=== PATIENT | female | born 1960 | race Caucasian/White ===

== ENCOUNTER → 2017-02-25 | Outpatient (CLI) | payer BC | END | disposition home or self-care (01) | LOC: MMGSC 10:05 | PROVIDERS: ATTEND Family Medicine | DX: Z00.00 Encounter for general adult medical examination without abnormal findings (principal) | CPT/HCPCS: 36415; 80061; 84439; 84443 ==

== ENCOUNTER → 2017-07-15 | Outpatient (CLI) | payer BC ==
[2017-07-15 18:48] LABS: Basophils # (A) 0.1 k/uL (0-0.2); Basophils % (A) 1 %; Eosinophils # (A) 0.1 k/uL (0-0.7); Eosinophils % (A) 2 %; HGB 13.7 gm/dL (11.4-16.0); Lymphocytes # (A) 2.6 k/uL (1.0-4.8); Lymphocytes % (A) 40 %; MCH 29.9 pg (25.0-35.0); MCHC 31.8 g/dL (31.0-37.0); MCV 94.2 fL (80.0-100.0); Mean Platelet Volume 7.9; Monocytes # (A) 0.5 k/uL (0-1.0); Monocytes % (A) 7 %; Neutrophils # (A) 3.2 k/uL (1.3-7.7); Neutrophils % (A) 48 %; Platelet Count 306 k/uL (150-450); RBC 4.57 m/uL (3.80-5.40); RDW 13.2 % (11.5-15.5); WBC 6.6 k/uL (3.8-10.6)
[2017-07-15 19:01] LABS: ALT 19 U/L (9-52); AST 22 U/L (14-36); Albumin 4.5 g/dL (3.5-5.0); Alkaline Phosphatase 71 U/L (38-126); Anion Gap 15 mmol/L; Blood Urea Nitrogen 19 mg/dL (7-17); Calcium 10.1 mg/dL (8.4-10.2); Carbon Dioxide 26 mmol/L (22-30); Chloride 100 mmol/L (98-107); Cholesterol 248 mg/dL (<200); Glucose 91 mg/dL (74-99); HDL Cholesterol 69 mg/dL (40-60); LDL Cholesterol,Calculated 157 mg/dL (0-99); Potassium 4.3 mmol/L (3.5-5.1); Sodium 141 mmol/L (137-145); Total Bilirubin 0.5 mg/dL (0.2-1.3); Total Protein 6.9 g/dL (6.3-8.2); Triglycerides 110 mg/dL (<150)
== END ==
LOC: MMGSC 09:24
PROVIDERS: ATTEND Family Medicine
DX: Z01.812 Encounter for preprocedural laboratory examination (principal); E78.5 Hyperlipidemia, unspecified
CPT/HCPCS: 36415; 80053; 80061; 85025

== ENCOUNTER → 2022-07-11 | Outpatient (CLI) | payer BC ==
--- NOTE | 2022-07-11 14:12 | P.GSHP ---
History of Present Illness H&P Date: 07/11/22 Chief Complaint: Nipple discharge Nichelle is a 62 year old white female seen in consultation for Dr. Duffy regarding left nipple discharge. She had a bilateral mammogram on 01-29-22 which was BIRAD 1. She noted the discharge the end of April. She has had itching of her nipples for many years. The discharge looks like old blood. Her cytology was done on 06-10-33 and was hypocellular and nondiagnostic. It has improved recently. She is not complaining of any lumps, masses, or nodules of concern. She has not had any surgery on her breast. She does not complain of any recent trauma or infection of the breast. Caffeine: 2 cups/day nicotine: none chocolate: occasional BCP: none Family History: mother: leukemia paternal grandmother: breast cancer maternal aunt: lung cancer Hormonal History: menarche: 11 G0 menopause: 43 Surgical History: two knee repla ements lap-band placed and removed tonsil cervical disc surgery Medical History: Berniceeminy following with cardiology Social History: nicotine: none alcohol: occasional 3-4 days/week drugs: none - Constitutional Constitutional: Denies chills, Denies fever - EENT Eyes: denies blurred vision, denies pain Ears: bilateral: tinnitus, deny: decreased hearing Ears, nose, mouth and throat: Denies headache, Denies sore throat - Breasts Breasts: bilateral: as per HPI - Cardiovascular Cardiovascular: Denies chest pain, Denies shortness of breath - Respiratory Respiratory: Denies cough, Denies 7 - Gastrointestinal Gastrointestinal: Denies abdominal pain, Denies diarrhea, Denies nausea, Denies vomiting - Genitourinary (Female) Genitourinary: Denies dysuria, Denies hematuria - Menstruation Menstruation: Reports postmenopausal - Musculoskeletal Musculoskeletal: Denies myalgias - Integumentary Integumentary: Denies pruritus, Denies rash - Neurological Neurological: Denies numbness, Denies weakness - Psychiatric Psychiatric: Denies anxiety, Denies depression - Endocrine Endocrine: Denies fatigue, Denies weight change - Hematologic/Lymphatic Comment: none Surgical - Exam - General no distress - Eyes normal ocular movement - Neck trachea midline - Cardiovascular Heart Sounds: normal: S1, S2 - Abdomen Abdomen: soft, non tender, no guarding, no rigid, no rebound - Integumentary normal turgor - Neurologic no disoriented, no combative - Musculoskeletal normal gait, normal posture - Psychiatric oriented to time, oriented to person, oriented to place, speech is normal, memory intact Breast Exam: BRA: 42B Inspection: Bilateral grade 3 ptosis Palpation: Right breast: Multi-positional exam fibrocystic changes no dominant masses or nodules of concern Right axilla: No adenopathy of concern Left breast: Multi-positional exam fibrocystic changes no dominant masses or nodules of concern with examination there is expression of bloody discharge from the nipple itself at approximately the 12 to 1 o'clock position, this was a bloody looking fluid which was guaiac tested and found to be guaiac positive no dominant masses or nodules are identified Left left axilla: No adenopathy of concern Results Mammogram reviewed Guaiac study of nipple discharge noted to be bloody Assessment and Plan Assessment: Impression: Bigeminy Left breast left breast bloody nipple discharge Plan: ultrasound behind the nipple on the left follow up after ultrasound duct exploration after ultrasound the ultrasound shows a anything of concern that it would be directed to that area otherwise we will do a duct exploration of the bloody nipple discharge duct CC: DR. Hopper
[2022-07-11 14:29] VITALS: BP 178/102; PULSE 96; RESP 17; TEMP 98.9
== END ==
LOC: WWCWWP 13:47
PROVIDERS: ATTEND Surgery
DX: I49.8 Other specified cardiac arrhythmias (principal); N64.52 Nipple discharge; Z80.1 Family history of malignant neoplasm of trachea, bronchus and lung; Z80.3 Family history of malignant neoplasm of breast; Z80.6 Family history of leukemia

== ENCOUNTER → 2022-07-15 | Outpatient (CLI) | payer BC ==
--- NOTE | 2022-07-15 10:17 | USB ---
Reason for Exam: Clinical finding. Risk Values: Elizabeth 5 year model risk: 1.1%. NCI Lifetime model risk: 4.3%. Technique: Method: Whole Breast Handheld. Findings: The whole breast of the left breast, the axilla of the left breast and the retroareolar of the left breast were scanned. A complete US of all four quadrants of the breast and retro-areolar region were reviewed. No solid or cystic masses are identified. A few prominent ducts present near the 3:00 position. Overall Assessment: Incomplete: need additional imaging evaluation, BI-RAD 0 Management: Diagnostic Mammogram of the left breast. Diagnostic left breast mammogram evaluation. Electronically signed and approved by: Ghanshyam Batista M.D.
--- NOTE | 2022-07-15 11:07 | MM ---
Reason for Exam: Clinical finding. Last screening mammogram was performed 5 month(s) ago. Patient History: Menarche at age 11. Postmenopausal. Paternal grandmother had breast cancer. Risk Values: Elizabeth 5 year model risk: 1.2%. NCI Lifetime model risk: 4.7%. Prior Study Comparison: 09/21/2018 Bilateral Screening Mammogram, [facility], [place]. 11/01/2020 Bilateral Screening Mammogram, [facility], [place]. 01/29/2022 Bilateral Screening Mammogram, [facility], [place]. Tissue Density: Left: There are scattered fibroglandular densities. Findings: Analyzed By CAD. A few benign-appearing punctate calcifications in the left breast are redemonstrated. Benign-appearing left axillary lymph nodes are again seen. No suspicious new mass or distortion. Overall Assessment: Benign, BI-RAD 2 Management: Screening Mammogram of both breasts in 7 months. Surgical Consultation of the left breast. Advise surgical consultation now due to bloody nipple discharge. Results were given to the patient verbally at the time of exam. Electronically signed and approved by: Ghanshyam Batista M.D.
== END | disposition home or self-care (01) ==
LOC: RADUSWWP 09:24
PROVIDERS: ATTEND Surgery
DX: N64.52 Nipple discharge (principal); Z78.0 Asymptomatic menopausal state; Z80.3 Family history of malignant neoplasm of breast
CPT/HCPCS: 77061; 77065

== ENCOUNTER 2022-08-19 08:20 | Day surgery (SDC) | payer BC ==
--- NOTE | 2022-08-14 13:07 | P.PN ---
Subjective Progress Note Date: 08/14/22 Principal diagnosis: Left breast bloody nipple discharge Nipple discharge Nichelle is a 62 year old white female seen in consultation for Dr. Duffy regarding left nipple discharge. She had a bilateral mammogram on 01-29-22 which was BIRAD 1. She noted the discharge the end of April. She has had itching of her nipples for many years. The discharge looks like old blood. Her cytology was done on 06-10-33 and was hypocellular and nondiagnostic. It has improved recently. She is not complaining of any lumps, masses, or nodules of concern. She has not had any surgery on her breast. She does not complain of any recent trauma or infection of the breast. On 07-15-22 the patient underwent a left breast repeat mammogram as well as ultrasound. No specific lesions of concern were identified. This was considered BIRADS 2 A few prominent ducts were noted in the 3 o'clock position. Caffeine: 2 cups/day nicotine: none chocolate: occasional BCP: none Family History: mother: leukemia paternal grandmother: breast cancer maternal aunt: lung cancer Hormonal History: menarche: 11 G0 menopause: 43 Surgical History: two knee repla ements lap-band placed and removed tonsil cervical disc surgery Medical History: Bigeminy following with cardiology Social History: nicotine: none alcohol: occasional 3-4 days/week drugs: none - Constitutional Constitutional: Denies chills, Denies fever - EENT Eyes: denies blurred vision, denies pain Ears: bilateral: tinnitus, deny: decreased hearing Ears, nose, mouth and throat: Denies headache, Denies sore throat - Breasts Breasts: bilateral: as per HPI - Cardiovascular Cardiovascular: Denies chest pain, Denies shortness of breath - Respiratory Respiratory: Denies cough - Gastrointestinal Gastrointestinal: Denies abdominal pain, Denies diarrhea, Denies nausea, Denies vomiting - Genitourinary (Female) Genitourinary: Denies dysuria, Denies hematuria - Menstruation Menstruation: Reports postmenopausal - Musculoskeletal Musculoskeletal: Denies myalgias - Integumentary Integumentary: Denies pruritus, Denies rash - Neurological Neurological: Denies numbness, Denies weakness - Psychiatric Psychiatric: Denies anxiety, Denies depression - Endocrine Endocrine: Denies fatigue, Denies weight change - Hematologic/Lymphatic Comment: none Objective - Vital Signs Vital signs: Intake & Output 08/13/22 08/14/22 08/14/22 18:59 06:59 18:59 Weight 113.398 kg - Constitutional General appearance: Present: cooperative - EENT Eyes: Present: EOMI ENT: Present: hearing grossly normal - Neck Neck: Present: normal ROM - Respiratory Respiratory: bilateral: CTA - Cardiovascular Rhythm: regular Heart sounds: normal: S1, S2 - Gastrointestinal General gastrointestinal: Present: soft - Integumentary Integumentary: Present: normal turgor - Musculoskeletal Musculoskeletal: Present: gait normal - Psychiatric Psychiatric: Present: A&O x's 3, appropriate affect, intact judgment & insight - Additional findings Additional findings: Breast Exam: BRA: 42B Inspection: Bilateral grade 3 ptosis Palpation: Right breast: Multi-positional exam fibrocystic changes no dominant masses or nodules of concern Right axilla: No adenopathy of concern Left breast: Multi-positional exam fibrocystic changes no dominant masses or nodules of concern with examination there is expression of bloody discharge from the nipple itself at approximately the 12 to 1 o'clock position, this was a bloody looking fluid which was guaiac tested and found to be guaiac positive no dominant masses or nodules are identified Left left axilla: No adenopathy of concern Assessment and Plan Assessment: Impression: Bigeminy Left breast left breast bloody nipple discharge Plan: ultrasound behind the nipple on the left as well as mammogram done 07-15-22 BIRAD 2 follow up after ultrasound duct exploration left breast CC: DR. Hopper Additional CC's: Leta Hopper
[~2022-08-19 08:20] MED LIST: HEPARIN SODIUM,PORCINE/PF 5,000 UNIT/0.5 ML SYRINGE SQ PRN; Pre Op ABX Message 1 EACH MISC MISCELLANE ONE
[2022-08-19] MEDS ORDERED: LACTATED RINGERS 1,000 ML IV ONE (08:36)
[2022-08-19] MEDS ORDERED: ONDANSETRON 4 MG/2 ML VIAL IVP ONE (08:51)
[2022-08-19] MEDS ORDERED: DEXAMETHASONE SOD PHOSPHATE 4 MG/ML 1 ML VIAL IVP ONE (08:52)
[2022-08-19] MEDS ORDERED: SCOPOLAMINE 1 MG/72 HR PATCH TRANSDERM ONE (09:07)
[2022-08-19 09:10] LABS: Potassium 4.5 mmol/L (3.5-5.1)
[2022-08-19] MEDS ORDERED: PROPOFOL 10 MG/ML 20 ML VIAL IV ONE (09:57)
[2022-08-19] MEDS ORDERED: fentaNYL (PF) 50 MCG/ML 2 ML AMP ONE (09:57)
[2022-08-19] MEDS ORDERED: NEOSTIGMINE 1 MG/ML 10 ML VIAL ONE (09:57)
[2022-08-19] MEDS ORDERED: GLYCOPYRROLATE 0.2 MG/ML 2 ML VIAL ONE (09:57)
[2022-08-19] MEDS ORDERED: LIDOCAINE 2% INJ 20 MG/ML (2 ML VIAL) ONE (09:57)
[2022-08-19] MEDS ORDERED: ROCURONIUM 10 MG/ML (5 ML VIAL) IV ONE (09:57)
[2022-08-19] MEDS ORDERED: MIDAZOLAM 2 MG/2 ML VIAL ONE (09:57)
[2022-08-19] MEDS ORDERED: SUCCINYLCHOLINE CHLORIDE 200 MG/10 ML VIAL IV ONE (09:57)
--- NOTE | 2022-08-19 11:14 | P.OP ---
Date of Procedure: 08/19/22 Preoperative Diagnosis: Left breast bloody nipple discharge Postoperative Diagnosis: Same Procedure(s) Performed: Left breast duct exploration, onco-plastic tissue transfer 35 cm Anesthesia: STACYA Surgeon: Kerri Barrera Estimated Blood Loss (ml): 8 IV fluids (ml): 300 Pathology: other (Breast tissue) Condition: stable Disposition: same day Indications for Procedure: Left breast bloody nipple discharge Operative Findings: Dense breast tissue Description of Procedure: The patient was taken to the operating room and following induction of anesthesia the left breast was prepped and draped in a sterile fashion. Circumareolar incision was made in the area of the dilated duct which had blood in it was identified and traced from the nipple down to the chest wall. Approximately 4 x 3 cm of tissue was excised. There was noted to be dilated duct with what appeared to be blood in it extending down to the area of the chest wall. A superior pillar was mobilized 5 x 3 cm , an inferior pillar was mobilized 4 x 2 cm. Total tissue transfer was 35 cm. After assured that hemostasis was attained titanium clips were placed. Surgicel in powder form was placed. The superior and inferior pillars were brought together using 3-0 Vicryl suture. The specimen was painted for orientation and sent to pathology. The subcutaneous tissue was closed using 3-0 Vicryl suture. A 4-0 Monocryl subcuticular suture was placed. Steri-Strips were applied. The patient tolerated the procedure in stable condition. All instrument and sponge counts were correct at the end of the case.
--- NOTE | 2022-08-19 11:15 | P.DS ---
Providers Attending physician: Kerri Barrera Primary care physician: Leta Hopper Plan - Discharge Summary Discharge Rx Participant: No New Discharge Prescriptions: No Action Esomeprazole Magnesium [NexIUM 24Hr] 20 mg PO DAILY Acetaminophen Tab [Tylenol] 500 mg PO DAILY PRN PRN Reason: Pain Cholecalciferol [Vitamin D3 (25 Mcg = 1000 Iu)] 25 mcg PO DAILY Rosuvastatin Calcium 5 mg PO DAILY Metoprolol Succinate [Metoprolol Succinate ER] 25 mg PO HS Discharge Medication List Acetaminophen Tab [Tylenol] 500 mg PO DAILY PRN 07/11/22 [History] Esomeprazole Magnesium [NexIUM 24Hr] 20 mg PO DAILY 07/11/22 [History] Cholecalciferol [Vitamin D3 (25 Mcg = 1000 Iu)] 25 mcg PO DAILY 08/13/22 [History] Metoprolol Succinate [Metoprolol Succinate ER] 25 mg PO HS 08/13/22 [History] Rosuvastatin Calcium 5 mg PO DAILY 08/13/22 [History] Follow up Appointment(s)/Referral(s): Kerri Barrera MD [STAFF PHYSICIAN] - 08/28/22 9:20 am Patient Instructions/Handouts: *Surgery [facility] - (Anesthesia) Discharge Instructions Outpatient Surgery, *Surgery [facility] - Scopalamine Patch Instructions Activity/Diet/Wound Care/Special Instructions: do not drive for 24 hours after discharge do not drive if taking narcotic pain medicine may shower after 48 hours wear bra at all times Discharge Disposition: HOME SELF-CARE
[2022-08-19 11:35] VITALS: TEMP 97.5
[2022-08-19] MEDS ORDERED: HYDROmorphone 0.5 MG/0.5 ML SYRINGE IVP ONE (11:51)
[2022-08-19 13:25] VITALS: BP 125/76; PULSE 60; RESP 18
== END 2022-08-19 14:19 | disposition home or self-care (01) ==
LOC: OR 08:20
PROVIDERS: ATTEND Surgery
DX: N64.52 Nipple discharge (principal); I49.9 Cardiac arrhythmia, unspecified; I10 Essential (primary) hypertension; E78.5 Hyperlipidemia, unspecified; Z79.899 Other long term (current) drug therapy
CPT/HCPCS: 14001; 19110; 80051; J2250; J0330; J1100; J2710; J2405; J3010; J2704; J1170; J1644; J2001; 88305; 88341; 88342

== ENCOUNTER → 2022-08-28 | Outpatient (CLI) | payer BC ==
--- NOTE | 2022-08-28 10:16 | P.PN ---
Subjective Progress Note Date: 08/28/22 Principal diagnosis: microinvasive left breast cancer Nipple discharge Nichelle is a 62 year old white female seen in consultation for Dr. Duffy regarding left nipple discharge. She had a bilateral mammogram on 01-29-22 which was BIRAD 1. She noted the discharge the end of April. She has had itching of her nipples for many years. The discharge looks like old blood. Her cytology was done on 06-10-33 and was hypocellular and nondiagnostic. It has improved recently. She is not complaining of any lumps, masses, or nodules of concern. She has not had any surgery on her breast. She does not complain of any recent trauma or infection of the breast. She underwent duct exploration of the left duct on 08-19-22. This showed ER+AK+Her2-G1-2 invasive ductal cancer, 2.3 CM DCI with microinvasion. Caffeine: 2 cups/day nicotine: none chocolate: occasional BCP: none Family History: mother: leukemia paternal grandmother: breast cancer maternal aunt: lung cancer Hormonal History: menarche: 11 G0 menopause: 43 Surgical History: two knee repla ements lap-band placed and removed tonsil cervical disc surgery Medical History: Bigeminy following with cardiology Social History: nicotine: none alcohol: occasional 3-4 days/week drugs: none - Constitutional Constitutional: Denies chills, Denies fever - EENT Eyes: denies blurred vision, denies pain Ears: bilateral: tinnitus, deny: decreased hearing Ears, nose, mouth and throat: Denies headache, Denies sore throat - Breasts Breasts: bilateral: as per HPI - Cardiovascular Cardiovascular: Denies chest pain, Denies shortness of breath - Respiratory Respiratory: Denies cough - Gastrointestinal Gastrointestinal: Denies abdominal pain, Denies diarrhea, Denies nausea, Denies vomiting - Genitourinary (Female) Genitourinary: Denies dysuria, Denies hematuria - Menstruation Menstruation: Reports postmenopausal - Musculoskeletal Musculoskeletal: Denies myalgias - Integumentary Integumentary: Denies pruritus, Denies rash - Neurological Neurological: Denies numbness, Denies weakness - Psychiatric Psychiatric: Denies anxiety, Denies depression - Endocrine Endocrine: Denies fatigue, Denies weight change - Hematologic/Lymphatic Comment: none Objective - Vital Signs Vital signs: Intake & Output 08/27/22 08/28/22 08/28/22 18:59 06:59 18:59 Weight 113.398 kg - Constitutional General appearance: Present: cooperative - EENT Eyes: Present: EOMI ENT: Present: hearing grossly normal - Neck Neck: Present: normal ROM - Respiratory Respiratory: bilateral: CTA - Cardiovascular Rhythm: regular Heart sounds: normal: S1, S2 - Gastrointestinal General gastrointestinal: Present: soft - Integumentary Integumentary: Present: normal turgor - Musculoskeletal Musculoskeletal: Present: gait normal - Psychiatric Psychiatric: Present: A&O x's 3, appropriate affect, intact judgment & insight - Additional findings Additional findings: incision left breast clean and dry Assessment and Plan Assessment: impression: Left breast microinvasive ductal carcinoma, extensive DCIS stage IA Bigeminy following with cardiology Plan: Medical clearance/possible cardiology clearance Bilateral mastectomy, left sentinel node biopsy possible axillary node dissection Presentation of case at tumor board I discussed with the patient the stage of her cancer. We have also discussed treatment options. Surgical options including lumpectomy with radiation therapy versus mastectomy plus or minus reconstruction. At this time the patient has d eclined seen a plastic surgeon and would like to go flap. She would also like to have bilateral mastectomies performed. We have discussed radiation oncology and if her lymph nodes are negative she wi ll most likely not require this We have discussed medical oncology: I asked that she have an appointment with medical oncology she will most likely be recommended to undergo hormone therapy Oncotype assessment will depend on pathologic findings at the time of mastectomy Time spent 50 minutes Cc: Dr. Tarango
[2022-08-28 10:39] VITALS: BP 130/73; PULSE 68; RESP 17; TEMP 97.9
== END ==
LOC: WWCWWP 09:27
PROVIDERS: ATTEND Surgery
DX: Z80.3 Family history of malignant neoplasm of breast (principal); C50.912 Malignant neoplasm of unspecified site of left female breast; Z80.1 Family history of malignant neoplasm of trachea, bronchus and lung; Z98.890 Other specified postprocedural states

== ENCOUNTER → 2022-09-16 | Outpatient (CLI) | payer BC ==
--- NOTE | 2022-09-16 08:18 | P.PN ---
Progress Note - Text Progress Note Date: 09/16/22 Subjective Progress Note Date: 08/28/22 Principal diagnosis: microinvasive left breast cancer Nipple discharge Nichelle is a 62 year old white female seen in consultation for Dr. Duffy regarding left nipple discharge. She had a bilateral mammogram on 01-29-22 which was BIRAD 1. She noted the discharge the end of April. She has had itching of her nipples for many years. The discharge looked like old blood. Her cytology was done on 06-10-33 and was hypocellular and nondiagnostic. She was not complaining of any lumps, masses, or nodules of concern. She did not complain of any recent trauma or infection of the breast. She underwent duct exploration of the left duct on 08-19-22. This showed ER+MO+Her2-G1-2 invasive ductal cancer, 2.3 CM DCI with microinvasion. The patient approximately a week ago noted that there was some swelling and mild erythema of the breast. She comes in today for evaluation. She has not had any fever or chills. She is not complaining of increasing pain. The patient's case was presented at tumor board and [id number]. The consensus was for a left mastectomy with a left sentinel node biopsy. The patient understands and wishes to proceed. She is not interested in reconstruction. She would like to have bilateral mastectomy. I discussed this with the patient. Physical examination: Lungs: Clear Heart: Regular rate and rhythm Incision left breast clean and dry well-healed, mild erythema and swelling of the breast, no evidence of infection, hematoma Impression: Mild erythema and swelling of the left breast no evidence of infection or hematoma Plan: Patient will be given a course of antibiotics and follow up for preoperative appointment She is going to undergo bilateral mastectomy without reconstruction on October 21. If patient has any concerns she will follow up sooner Cc: Dr. Hopper
[2022-09-16 09:15] VITALS: BP 165/92; PULSE 66; RESP 17; TEMP 98
== END ==
LOC: WWCWWP 07:56
PROVIDERS: ATTEND Surgery
DX: C50.912 Malignant neoplasm of unspecified site of left female breast (principal); L53.9 Erythematous condition, unspecified; N64.52 Nipple discharge; Z17.0 Estrogen receptor positive status [ER+]

== ENCOUNTER → 2022-10-10 | Outpatient (CLI) | payer BC ==
[2022-10-10 11:04] VITALS: BP 134/87; PULSE 65; RESP 16; TEMP 98.9
--- NOTE | 2022-10-10 11:20 | P.PN ---
Subjective Progress Note Date: 10/10/22 Principal diagnosis: left breast DCIS/microinvasive ductal carcinoma Principal diagnosis: microinvasive left breast cancer 08-19-22 Nipple discharge Nichelle is a 62 year old white female seen in consultation for Dr. Duffy regarding left nipple discharge. She had a bilateral mammogram on 01-29-22 which was BIRAD 1. She noted the discharge the end of April. She has had itching of her nipples for many years. The discharge looked like old blood. Her cytology was done on 06-10-33 and was hypocellular and nondiagnostic. It has improved recently. She is not complaining of any lumps, masses, or nodules of concern. She has not had any surgery on her breast. She does not complain of any recent trauma or infection of the breast. She underwent duct exploration of the left duct on 08-19-22. This showed ER+WA+Her2-G1-2 invasive ductal cancer, 2.3 CM DCI with microinvasion. tumor board: 09-02-22 consensus left mastectomy and SNB the patient notified and whe wishes a bilateral mastectomy note medical oncology 09-03-22 Dr. Sada Zuluaga reviewed Caffeine: 2 cups/day nicotine: none chocolate: occasional BCP: none Family History: mother: leukemia paternal grandmother: breast cancer maternal aunt: lung cancer Hormonal History: menarche: 11 G0 menopause: 43 Surgical History: two knee repla ements lap-band placed and removed tonsil cervical disc surgery Medical History: Bigeminy following with cardiology Social History: nicotine: none alcohol: occasional 3-4 days/week drugs: none - Constitutional Constitutional: Denies chills, Denies fever - EENT Eyes: denies blurred vision, denies pain Ears: bilateral: tinnitus, deny: decreased hearing Ears, nose, mouth and throat: Denies headache, Denies sore throat - Breasts Breasts: bilateral: as per HPI - Cardiovascular Cardiovascular: Denies chest pain, Denies shortness of breath - Respiratory Respiratory: Denies cough - Gastrointestinal Gastrointestinal: Denies abdominal pain, Denies diarrhea, Denies nausea, Denies vomiting - Genitourinary (Female) Genitourinary: Denies dysuria, Denies hematuria - Menstruation Menstruation: Reports postmenopausal - Musculoskeletal Musculoskeletal: Denies myalgias - Integumentary Integumentary: Denies pruritus, Denies rash - Neurological Neurological: Denies numbness, Denies weakness - Psychiatric Psychiatric: Denies anxiety, Denies depression - Endocrine Endocrine: Denies fatigue, Denies weight change - Hematologic/Lymphatic Comment: none Objective - Vital Signs Vital signs: Vital Signs Temp 98.9 F 10/10/22 11:00 Pulse 65 10/10/22 11:00 Resp 16 10/10/22 11:00 BP 134/87 10/10/22 11:00 Pulse Ox 97 10/10/22 11:00 FiO2 Intake & Output 10/09/22 10/10/22 10/10/22 18:59 06:59 18:59 Weight 113.398 kg - Constitutional General appearance: Present: cooperative - EENT Eyes: Present: EOMI ENT: Present: hearing grossly normal - Neck Neck: Present: normal ROM - Respiratory Respiratory: bilateral: CTA - Cardiovascular Rhythm: regular Heart sounds: normal: S1, S2 - Gastrointestinal General gastrointestinal: Present: soft - Integumentary Integumentary: Present: normal turgor - Musculoskeletal Musculoskeletal: Present: gait normal - Psychiatric Psychiatric: Present: A&O x's 3, appropriate affect, intact judgment & insight - Additional findings Additional findings: Breast Exam: BRA: 3X inspection: bilateral grade 2/3 ptosis palpation: right breast: Multi-positional exam fibrocystic changes no dominant masses or notches of concern Right axilla: No adenopathy of concern Left breast: Well-healed scar from prior surgery, no dominant masses or nodules of concern Left axilla: No adenopathy of concern Assessment and Plan Assessment: impression: Left breast microinvasive ductal carcinoma, extensive DCIS stage IA Bigeminy following with cardiology Plan: Medical clearance/possible cardiology clearance Bilateral mastectomy, left sentinel node biopsy possible axillary node dissection Presentation of case at tumor board done I discussed with the patient the stage of her cancer. We have also discussed treatment options. Surgical options including lumpectomy with radiation therapy versus mastectomy plus or minus reconstruction. At this time the patient has declined seen a plastic surgeon and would like to go flat. She would also like to have bilateral mastectomies performed. We have discussed radiation oncology and if her lymph nodes are negative she will most likely not require this We have discussed medical oncology: I asked that she have an appointment with medical oncology she will most likely be recommended to undergo hormone therapy Oncotype assessment will depend on pathologic findings at the time of mastectomy Cc: Dr. Tarango
== END ==
LOC: WWCWWP 10:40
PROVIDERS: ATTEND Surgery
DX: D05.12 Intraductal carcinoma in situ of left breast (principal); Z80.3 Family history of malignant neoplasm of breast; Z17.0 Estrogen receptor positive status [ER+]

== ENCOUNTER 2022-10-21 08:06 | Observation (INO) | payer BC ==
[2022-10-16 10:38] VITALS: BMI 41.5
[2022-10-21] MEDS ORDERED: ALPRAZolam 0.5 MG TAB PO PRN (08:33)
[2022-10-21] MEDS ORDERED: DEXAMETHASONE SOD PHOSPHATE 4 MG/ML 1 ML VIAL IV ONE (08:33)
[2022-10-21] MEDS ORDERED: LIDOCAINE 1% (10MG/ML) FOR IV START INTRADERMA PRN (08:33)
[2022-10-21] MEDS ORDERED: METOCLOPRAMIDE 5 MG/ML 2 ML VIAL IVP PRN (08:33)
[2022-10-21] MEDS ORDERED: HYDROmorphone 0.5 MG/0.5 ML SYRINGE IVP PRN (08:33)
[2022-10-21] MEDS ORDERED: ONDANSETRON 4 MG/2 ML VIAL IVP ONE ×2 (08:33→15:02)
[2022-10-21] MEDS ORDERED: MIDAZOLAM 2 MG/2 ML VIAL IVP ONE (09:08)
[2022-10-21] MEDS: LACTATED RINGERS 1,000 ML IV SCH (09:15)
[2022-10-21 09:24] LABS: Potassium 4.5 mmol/L (3.5-5.1)
--- NOTE | 2022-10-21 09:48 | P.NAPBC ---
NAPBC Queries - NAPBC Queries Was patient's case review presented at [facility] tumor board? If no, comment.: Yes Was patient's pathology reviewed at [facility]? If no, comment.: Yes Was breast conservation surgery offered? If no, comment.: Yes Was sentinel node biopsy offered? If no, comment.: Yes Was diagnosis confirmed by percutaneous core biopsy? If no, comment.: Yes Is patient mastectomy patient?: Yes Was a preop referral to reconstructive surgeon offered?: Yes (patient declined) Clinical Stage: left breast stage 1
--- NOTE | 2022-10-21 10:00 | NM ---
EXAMINATION TYPE: NM sentinel node injection DATE OF EXAM: 10/21/2022 COMPARISON: NONE CLINICAL INDICATION: Female, 62 years old with history of Breast cancer; TECHNIQUE AND FINDINGS: The procedure of sentinel lymph node injection was explained to the patient. The benefits, alternatives, and risks were discussed. An informed consent was then obtained. Overlying skin is cleaned with sterile alcohol. Following this, 522 uCi Tc99m Tilmanocept was inject ed in the upper outer aspect of the left nipple intradermally. The patient tolerated the procedure well without any immediate complication. The patient was kept in the radiology department for short stay after the procedure and then taken to surgery for surgical p rocedure what is presumed intraoperative gamma probe will be used for sentinel lymph node detection. IMPRESSION: Left breast radiotracer injection for sentinel node localization as above.
[2022-10-21] MEDS ORDERED: SUCCINYLCHOLINE CHLORIDE 200 MG/10 ML VIAL IV ONE (10:16)
[2022-10-21] MEDS ORDERED: PROPOFOL 10 MG/ML 20 ML VIAL IV ONE (10:16)
[2022-10-21] MEDS ORDERED: LIDOCAINE 2% INJ 20 MG/ML (2 ML VIAL) ONE (10:16)
[2022-10-21] MEDS ORDERED: ALBUTEROL HFA INHALER INHALATION ONE (10:16)
[2022-10-21] MEDS ORDERED: fentaNYL (PF) 50 MCG/ML 2 ML AMP ONE (10:16)
[2022-10-21] MEDS ORDERED: MIDAZOLAM 2 MG/2 ML VIAL ONE (10:16)
[2022-10-21] MEDS ORDERED: GLYCOPYRROLATE 0.2 MG/ML 2 ML VIAL ONE (10:16)
[2022-10-21] MEDS ORDERED: ROCURONIUM 10 MG/ML (5 ML VIAL) IV ONE (10:16)
[2022-10-21] MEDS ORDERED: SODIUM CHLORIDE 0.9% 100 ML BAG ONE (10:21)
[2022-10-21] MEDS ORDERED: ceFAZolin 1,000 MG VIAL ONE (10:21)
[2022-10-21] MEDS ORDERED: IV FLUID CONTINUATION 1,000 ML IV ONE (13:02)
[2022-10-21] MEDS ORDERED: LACTATED RINGERS 1,000 ML IV ONE (13:14)
[2022-10-21] MEDS ORDERED: NALOXONE 0.4 MG/ML 1 ML VIAL IV PRN (13:32)
[2022-10-21] MEDS ORDERED: HYDROmorphone 1 MG/ML 1 ML SYRINGE IVP PRN (13:32)
[2022-10-21] MEDS ORDERED: HYDROcodone/APAP 5-325MG 1 EACH TAB PO PRN (13:32)
--- NOTE | 2022-10-21 13:32 | P.OP ---
Date of Procedure: 10/21/22 Preoperative Diagnosis: Left breast invasive ductal carcinoma Postoperative Diagnosis: Same Procedure(s) Performed: Bilateral mastectomy with left sentinel node biopsy Anesthesia: MURALI Surgeon: Kerri Barrera Estimated Blood Loss (ml): 30 IV fluids (ml): 900 Pathology: other (Bilateral breast, left axillary lymph node sentinel node) Condition: stable Disposition: floor Indications for Procedure: Left breast invasive ductal carcinoma Operative Findings: Dense breast tissue Description of Procedure: Patient was seen in the preoperative area and periareolar injection of radiotracer on the left side was performed. The patient was brought to the operative suite. Following induction of anesthesia the neoprobe was used to interrogate the axilla. The patient was noted to be present in the axilla. Both breasts were prepped and draped in a sterile fashion. The left arm was free draped. Following this the area of the right breast was approached initially. Markings were placed for superior and inferior skin flaps. The skin was incised and flaps were developed. This was done using electrocautery device as well as the Harmonic scalpel. Dissection was carried down to the pectoralis muscle. The breast was removed from medial to lateral being careful to maintain hemostasis using electrocautery device. A #10 MARGO drain was placed. The drain was secured using a nylon suture. The wound was irrigated. After assured that hemostasis was attained Surgicel in powder form was placed. The deep tissues were closed using 3-0 Vicryl suture. The subcutaneous tissue was closed using 3-0 Vicryl suture. The skin was closed using a 4-0 Monocryl. The area of the left breast was then approached. The neoprobe was used to interrogate the area of greatest radioactivity. Incisions were made for superior and inferior skin flaps. The skin flaps were developed. Hemostasis was attained using electrocautery device as well as the Harmonic scalpel. The specimen was dissected down to the area of the axillary tissue. Using the neoprobe the area of greatest radioactivity was identified. This was grasped using an Allis clamp. The lymph node was removed. The 10 second count on the lymph node was 2539. The axillary background count at 10 seconds was 17. The breast was removed from the pectoralis muscle using electrocautery device. The wound was well irrigated. After assured that hemostasis was attained Surgicel in powder form was placed. A #10 MARGO drain was placed. This was secured using a nylon suture. The deep tissues were closed using 3-0 Vicryl. The skin was approximated using a 3-0 Vicryl subcutaneous suture. A 4-0 Monocryl subcuticular suture was placed. Steri-Strips were placed in each side. All instrument and sponge counts were correct at the end of the case. The patient tolerated the procedure in stable condition.
[2022-10-21] MEDS ORDERED: HYDROmorphone 0.5 MG/0.5 ML SYRINGE IVP ONE (15:26)
[2022-10-21] MEDS: DEXTROSE 5%-0.45% NACL 1,000 ML IV SCH ×2 (17:30→23:13)
--- NOTE | 2022-10-21 17:31 | P.CONS ---
History of Present Illness - Reason for Consult Consult date: 10/21/22 - History of Present Illness Patient is a 62-year-old female with recent diagnosis of left breast invasive ductal carcinoma, hypertension, dyslipidemia, GERD, atrial fibrillation not on anticoagulation here for elective bilateral mastectomy with left sentinel node biopsy. [facility] physicians has been consulted for medical management. Has significant chest pain from surgery. Denies any shortness of breath, nausea, vomiting, abdominal pain, urinary or bowel complaints. Pertinent positives and negatives as discussed in HPI, a complete review of systems was performed and all other systems are negative. Patient seen and examined at bedside. Vital signs reviewed General: nontoxic, no distress, appears at stated age Derm: warm, dry, chest dressing clean, dry, intact, has [address] Head: atraumatic, normocephalic, symmetric Eyes: EOMI, no lid lag, anicteric sclera, pupils equal round reactive to light ENT: Nose and ears atraumatic Neck: No thyromegaly, supple Mouth: no lip lesion, mucus membranes moist Cardiovascular: S1S2 reg, no murmur, no edema Lungs: clear to auscultation bilateral, no rhonchi, no rales, no wheeze, no accessory muscle use Abdominal: soft, nontender to palpation, no guarding, no appreciable organomegaly Ext: no gross muscle atrophy, muscle strength muscle strength 5 out of 5 in all 4 extremities, no contractures Neuro: CN II-XII grossly intact Psych: Alert, oriented, appropriate affect Assessment/Plan: Left breast invasive ductal carcinoma status post bilateral mastectomy with left sentinel lobe biopsy Hypertension Dyslipidemia GERD Atrial fibrillation -On oral [place] as needed, and IV Dilaudid as needed -Subcu heparin for DVT prophylaxis -Electrolytes reviewed -Home medications reviewed and reconciled -CBC pending tomorrow -BMP ordered for tomorrow Thank you for allowing us to participate in the care of this pleasant patient. Do not hesitate to contact us with questions. Someone can be reached from the [facility] Physicians hospitalist group all hours of the day at [phone] or via YODIL. Past Medical History Past Medical History: Atrial Fibrillation, Cancer, GERD/Reflux, Hyperlipidemia Additional Past Medical History / Comment(s): takes metoprolol for occasional SVT and PVC., states recent episode of a-fib., left breast cancer History of Any Multi-Drug Resistant Organisms: None Reported Past Surgical History: Back Surgery, Breast Surgery, Orthopedic Surgery, Tonsillectomy Additional Past Surgical History / Comment(s): bilateral knee partial knee replacement., lap band placed and removed. discectomy., left breast duct exploration., Past Anesthesia/Blood Transfusion Reactions: No Reported Reaction, Motion Sickness Additional Past Anesthesia/Blood Transfusion Reaction / Comm: states some difficulty waking up with recent breast surgery Past Psychological History: No Psychological Hx Reported Smoking Status: Never smoker Past Alcohol Use History: Occasional Past Drug Use History: None Reported - Past Family History Mother Family Medical History: Cancer Additional Family Medical History / Comment(s): leukemia Medications and Allergies Home Medications Medication Instructions Recorded Confirmed Type Acetaminophen Tab [Tylenol] 500 mg PO DAILY PRN 07/11/22 10/21/22 History Esomeprazole Magnesium [NexIUM 20 mg PO DAILY 07/11/22 10/21/22 History 24Hr] Cholecalciferol [Vitamin D3 (25 25 mcg PO DAILY 08/13/22 10/21/22 History Mcg = 1000 Iu)] Metoprolol Succinate [Metoprolol 12.5 mg PO HS 08/13/22 10/21/22 History Succinate ER] Rosuvastatin Calcium 5 mg PO DAILY 08/13/22 10/21/22 History Flecainide [Tambocor] 50 mg PO BID 10/10/22 10/21/22 History HYDROcodone/APAP 5-325MG [[place] 5] 1 - 2 each PO Q6HR PRN #20 tab 10/21/22 Rx Propylene Glycol/Peg 400/Pf 2 drops BID 10/21/22 10/21/22 History [Systane 0.3-0.4% Ophth Dropperette] Allergies Allergy/AdvReac Type Severity Reaction Status Date / Time No Known Allergies Allergy Unverified 10/21/22 08:42 Physical Exam Vitals: Vital Signs Temp Pulse Resp BP Pulse Ox 10/21/22 16:47 82 14 128/84 91 L 10/21/22 15:30 77 17 118/63 91 L 10/21/22 15:15 82 18 133/70 92 L 10/21/22 14:59 82 17 137/70 91 L 10/21/22 14:44 81 15 131/72 92 L 10/21/22 14:28 80 17 139/74 95 10/21/22 14:12 75 14 146/69 94 L 10/21/22 13:57 75 15 146/69 94 L 10/21/22 13:42 97.1 F L 77 12 128/63 97 10/21/22 09:17 68 16 96 10/21/22 08:48 97.9 F 80 18 142/79 95 Intake and Output 10/21/22 10/21/22 10/21/22 06:59 14:59 22:59 Intake Total 1100 Output Total 30 Balance 1070 Intake: IV 1100 Output: Estimated Blood Loss 30 Other: Voiding Method Toilet Results CBC & Chem 7: 10/21/22 09:01
[2022-10-21] MEDS: HEPARIN SODIUM,PORCINE/PF 5,000 UNIT/0.5 ML SYRINGE SQ SCH ×2 (18:09→23:13)
[2022-10-21] MEDS: FLECAINIDE 50 MG TAB PO SCH (20:11)
[2022-10-21] MEDS: ACETAMINOPHEN TAB 325 MG TAB PO PRN (20:11)
[2022-10-21] MEDS ORDERED: METOPROLOL SUCCINATE (ER) 25 MG TAB.ER.24H PO SCH (21:00)
[2022-10-22] MEDS: ACETAMINOPHEN TAB 325 MG TAB PO PRN ×3 (01:55→09:54)
[2022-10-22] MEDS: DEXTROSE 5%-0.45% NACL 1,000 ML IV SCH (01:56)
[2022-10-22 02:00] VITALS: TEMP 98.4
--- NOTE | 2022-10-22 08:03 | P.PN ---
Subjective Progress Note Date: 10/22/22 Principal diagnosis: POD #1 bilateral mastectomy with left sentinel node biopsy Nichelle is a 62-year-old white female status post bilateral mastectomy with left sentinel node biopsy postop day #1. Postoperatively she is doing well. She is tolerating diet without difficulty. She has minimal pain. Her MARGO drain on the right is minimal, that on the left is approximately 130 mL of serous fluid which is dark in nature. Objective - Vital Signs Vital signs: Vital Signs Temp 98.4 F 10/22/22 07:16 Pulse 63 10/22/22 07:16 Resp 16 10/22/22 07:16 BP 112/72 10/22/22 07:16 Pulse Ox 94 L 10/22/22 07:16 FiO2 Intake & Output 10/21/22 10/22/22 10/22/22 18:59 06:59 18:59 Intake Total 1200 480 Output Total 30 90 Balance 1170 390 Intake: IV 1100 Intake, IV Titration 100 Amount Dextrose 5%-0.45% NaCl 1, 100 000 ml @ 100 mls/hr IV . Q10H [facility]OL[facility] Rx#:[id number] Oral 480 Output: Drainage 0 90 Left Chest 0 90 Right Chest 0 0 Estimated Blood Loss 30 Other: Voiding Method Toilet Toilet # Voids 2 - Constitutional General appearance: Present: cooperative - EENT Eyes: Present: EOMI ENT: Present: hearing grossly normal - Neck Neck: Present: normal ROM - Respiratory Respiratory: bilateral: CTA - Cardiovascular Rhythm: regular Heart sounds: normal: S1, S2 - Integumentary Integumentary Comment(s): Incision clean and dry bilateral; MARGO #1 serous approximately 5 mL, MARGO #130 cc serosanguineous - Psychiatric Psychiatric: Present: A&O x's 3, appropriate affect, intact judgment & insight - Labs CBC & Chem 7: 10/21/22 09:01 Assessment and Plan Assessment: Impression: Patient doing well at this time Plan: Await CBC Consult visiting nursing Probable discharge home later today
[2022-10-22] MEDS ORDERED: ATORVASTATIN 10 MG TAB PO SCH (09:00)
[2022-10-22] MEDS ORDERED: CHOLECALCIFEROL 25 MCG (1000 IU) TABLET PO SCH (09:00)
[2022-10-22] MEDS ORDERED: PANTOPRAZOLE 40 MG TABLET PO SCH (09:00)
[2022-10-22 09:27] LABS: Basophils # (A) 0.07 X 10*3/uL (0.00-0.10); Basophils % (A) 0.6 %; Eosinophils # (A) 0.01 X 10*3/uL (0.04-0.35); Eosinophils % (A) 0.1 %; HCT 37.1 % (37.2-46.3); HGB 11.9 d/dL (12.0-15.0); Lymphocytes # (A) 2.31 X 10*3/uL (0.90-5.00); MCH 31.2 pg (27.0-32.0); MCHC 32.1 d/dL (32.0-37.0); MCV 97.4 FL (80.0-97.0); Mean Platelet Volume 10.1 FL (9.5-12.2); Monocytes # (A) 1.28 X 10*3/uL (0.20-1.00); Monocytes % (A) 11.6 %; NRBC Per 100 WBC 0 X 10*3/uL (0.00-0.01); Neutrophils # (A) 7.31 X 10*3/uL (1.80-7.70); Neutrophils % (A) 66.3 %; Platelet Count 321 X 10*3/uL (140-440); RBC 3.81 X 10*6/uL (4.10-5.20); RDW 13.3 % (11.5-14.5); WBC 11.02 X 10*3/uL (4.50-10.00)
[2022-10-22] MEDS: FLECAINIDE 50 MG TAB PO SCH (09:54)
[2022-10-22] MEDS: HEPARIN SODIUM,PORCINE/PF 5,000 UNIT/0.5 ML SYRINGE SQ SCH (09:54)
[2022-10-22] MEDS: LACTATED RINGERS 1,000 ML IV SCH (09:55)
[2022-10-22 11:17] LABS: BUN/Creat Ratio 12.38 Ratio (12.00-20.00); Blood Urea Nitrogen 9.9 mg/dL (9.0-27.0); Carbon Dioxide 24.2 mmol/L (21.6-31.8); Chloride 102 mmol/L (96-109); Glucose 131 mg/dL (70-110); Sodium 137 mmol/L (135-145)
--- NOTE | 2022-10-22 11:43 | P.PN ---
Subjective Progress Note Date: 10/22/22 Subjective: Patient seen and examined at bedside. No acute events overnight. Pertinent positives and negatives as discussed above, a complete review of systems was performed and all other systems are negative. Vitals Signs Reviewed. General: nontoxic, no distress, appears at stated age Derm: warm, dry, chest dressing clean, dry, intact, has [address] Head: atraumatic, normocephalic, symmetric Eyes: EOMI, no lid lag, anicteric sclera, pupils equal round reactive to light ENT: Nose and ears atraumatic Neck: No thyromegaly, supple Mouth: no lip lesion, mucus membranes moist Cardiovascular: S1S2 reg, no murmur, no edema Lungs: clear to auscultation bilateral, no rhonchi, no rales, no wheeze, no accessory muscle use Abdominal: soft, nontender to palpation, no guarding, no appreciable organomegaly Ext: no gross muscle atrophy, muscle strength muscle strength 5 out of 5 in all 4 extremities, no contractures Neuro: CN II-XII grossly intact Psych: Alert, oriented, appropriate affect Data Reviewed Today: Pertinent Labs: WBC 11.02, including 11.9, potassium 4, creatinine 0.8 Assessment and Plan: Left breast invasive ductal carcinoma status post bilateral mastectomy with left sentinel lobe biopsy Hypertension Dyslipidemia GERD Atrial fibrillation -On oral [place] as needed, and IV Dilaudid as needed -Subcu heparin for DVT prophylaxis -home meds reconciled Patient is medically optimized for discharge home Thank you for allowing us to participate in the care of this pleasant patient. Do not hesitate to contact us with questions. Someone can be reached from the [facility] hospitalist group all hours of the day at [phone] or via perfect serve. Objective - Vital Signs Vital signs: Vital Signs Temp 98.4 F 10/22/22 07:16 Pulse 63 10/22/22 07:16 Resp 16 10/22/22 07:16 BP 112/72 10/22/22 07:16 Pulse Ox 93 L 10/22/22 08:57 FiO2 Intake & Output 10/21/22 10/22/22 10/22/22 18:59 06:59 18:59 Intake Total 1200 480 Output Total 30 90 43 Balance 1170 390 -43 Intake: IV 1100 Intake, IV Titration 100 Amount Dextrose 5%-0.45% NaCl 1, 100 000 ml @ 100 mls/hr IV . Q10H [facility] Rx#:[id number] Oral 480 Output: Drainage 0 90 43 Left Chest 0 90 40 Right Chest 0 0 3 Estimated Blood Loss 30 Other: Voiding Method Toilet Toilet Toilet # Voids 2 - Labs CBC & Chem 7: 10/22/22 06:10 10/22/22 06:10 Labs: Abnormal Lab Results - Last 24 Hours (Table) 10/22/22 10/22/22 Range/Units 06:10 06:10 WBC 11.02 H (4.50-10.00) X 10*3/uL RBC 3.81 L (4.10-5.20) X 10*6/uL Hgb 11.9 L (12.0-15.0) d/dL Hct 37.1 L (37.2-46.3) % MCV 97.4 H (80.0-97.0) FL Monocytes # 1.28 H (0.20-1.00) X 10*3/uL Eosinophils # 0.01 L (0.04-0.35) X 10*3/uL Glucose 131 H (70-110) mg/dL
--- NOTE | 2022-10-22 12:49 | P.DS ---
Providers Date of admission: 10/22/22 07:58 Expected date of discharge: 10/22/22 Attending physician: Kerri Barrera Consults: 10/21/22 13:39 Consult Physician Routine Consulting Provider: Manfred Jensen Consult Reason/Comments: medical managment Do you want consulting provider notified?: Yes Primary care physician: [facility] Course: Nichelle is a 62-year-old white female status post bilateral mastectomy with left sentinel node biopsy on [id number]. Postoperatively she has done well and is ready for discharge on her first postoperative day. Plan - Discharge Summary Discharge Rx Participant: No New Discharge Prescriptions: New HYDROcodone/APAP 5-325MG [[place] 5] 1 - 2 each PO Q6HR PRN #20 tab PRN Reason: Pain Continue Esomeprazole Magnesium [NexIUM 24Hr] 20 mg PO DAILY Cholecalciferol [Vitamin D3 (25 Mcg = 1000 Iu)] 25 mcg PO DAILY Rosuvastatin Calcium 5 mg PO DAILY Metoprolol Succinate [Metoprolol Succinate ER] 12.5 mg PO HS Flecainide [Tambocor] 50 mg PO BID Propylene Glycol/Peg 400/Pf [Systane 0.3-0.4% Ophth Dropperette] 2 drops BID No Action Acetaminophen Tab [Tylenol] 500 mg PO DAILY PRN PRN Reason: Pain Discharge Medication List Acetaminophen Tab [Tylenol] 500 mg PO DAILY PRN 07/11/22 [History] Esomeprazole Magnesium [NexIUM 24Hr] 20 mg PO DAILY 07/11/22 [History] Cholecalciferol [Vitamin D3 (25 Mcg = 1000 Iu)] 25 mcg PO DAILY 08/13/22 [History] Metoprolol Succinate [Metoprolol Succinate ER] 12.5 mg PO HS 08/13/22 [History] Rosuvastatin Calcium 5 mg PO DAILY 08/13/22 [History] Flecainide [Tambocor] 50 mg PO BID 10/10/22 [History] HYDROcodone/APAP 5-325MG [[place] 5] 1 - 2 each PO Q6HR PRN #20 tab 10/21/22 [Rx] Propylene Glycol/Peg 400/Pf [Systane 0.3-0.4% Ophth Dropperette] 2 drops BID 10/21/22 [History] Follow up Appointment(s)/Referral(s): [facility], [NON-STAFF] - 1 Week Kerri Barrera MD [STAFF PHYSICIAN] - 10/31/22 1:40 pm Activity/Diet/Wound Care/Special Instructions: Teach patient drain care May shower after 48 hours Drain and record MARGO output twice a day and as needed Do not drive until seen by Dr. Friedman Discharge Disposition: HOME SELF-CARE
[2022-10-22 13:45] VITALS: BP 120/75; PULSE 72; RESP 18
== END 2022-10-22 13:54 | disposition home health service (06) ==
LOC: OR 08:06 → 5NMEDONC 13:42 → OR 10-22 07:58 → 5NMEDONC 10-22 07:58
PROVIDERS: ADMIT Surgery; ATTEND Surgery
DX: C50.912 Malignant neoplasm of unspecified site of left female breast (principal); I10 Essential (primary) hypertension; K21.9 Gastro-esophageal reflux disease without esophagitis; E78.5 Hyperlipidemia, unspecified; I48.91 Unspecified atrial fibrillation; Z96.653 Presence of artificial knee joint, bilateral; Z80.6 Family history of leukemia; Z79.899 Other long term (current) drug therapy
CPT/HCPCS: 96360; 96361; 96372; 94760; 80051; 80048; 85025; 88342; 88307; 88309; 88341; 38792; 19307; G0378; A9520; J2250; J0330; J1100; J2405; J0690; J3010; J2704; J1170; J1644 ×2; J2001

== ENCOUNTER → 2022-10-31 | Outpatient (CLI) | payer BC ==
--- NOTE | 2022-10-31 14:02 | P.PN ---
Progress Note - Text Progress Note Date: 10/31/22 Nichelle is a 62 year old white female status post bilateral mastectomy and left SNB for a left breast IDC on 10-21-22. Her pathology revealed : Right breast: Benign breast tissue with fibrocystic change Left breast: Focus of microinvasive carcinoma with residual low to intermediate grade DCIS and associated prior related changes. All margins negative for invasive cancer Left sentinel lymph node 1 node positive for metastatic isolated tumor cells. She is doing well post-op. Physical Exam: Lungs: Clear Heart: Regular rate and rhythm Incisions: Clean and dry bilateral MARGO drains bilateral approximately 40 mL serous in nature. Impression: Patient doing well postoperative Plan: We'll leave MARGO drain so next week Appointment medical oncology Appointment radiation oncology CC: Dr. Hopper
[2022-10-31 14:14] VITALS: BP 128/84; PULSE 72; RESP 13; TEMP 98.2
== END ==
LOC: WWCWWP 13:28
PROVIDERS: ATTEND Surgery
DX: D05.10 Intraductal carcinoma in situ of unspecified breast (principal)

== ENCOUNTER → 2022-11-06 | Outpatient (CLI) | payer BC ==
--- NOTE | 2022-11-06 14:55 | P.PN ---
Progress Note - Text Progress Note Date: 11/06/22 Nichelle is a 62 year old white female status post bilateral mastectomy and left SNB for a left breast IDC on 10-21-22. Her pathology revealed : Right breast: Benign breast tissue with fibrocystic change Left breast: Focus of microinvasive carcinoma with residual low to intermediate grade DCIS and associated prior related changes. All margins negative for invasive cancer Left sentinel lymph node 1 node positive for metastatic isolated tumor cells. She is doing well post-op. Physical Exam: Lungs: Clear Heart: Regular rate and rhythm Incisions: Clean and dry bilateral MARGO drains less than 40 mL per day for the last several days serous in nature Impression: Patient doing well postoperative Plan: DC MARGO drains bilateral Appointment medical oncology Appointment radiation oncology follow up in 4 months CC: Dr. Hopper
[2022-11-06 14:58] VITALS: BP 117/81; PULSE 72; RESP 18; TEMP 98.1
== END ==
LOC: WWCWWP 14:43
PROVIDERS: ATTEND Surgery
DX: N60.11 Diffuse cystic mastopathy of right breast (principal); Z90.13 Acquired absence of bilateral breasts and nipples

== ENCOUNTER → 2022-11-06 | Outpatient (CLI) | payer BC ==
--- NOTE | 2022-11-06 15:54 | US ---
EXAMINATION TYPE: US thyroid st tissue head/neck DATE OF EXAM: 11/06/2022 COMPARISON: NONE CLINICAL INDICATION: Female, 62 years old with history of R13.10 DYSPHAGIA; dysphagia GLAND SIZE: Right Lobe: 4.3 x 1.9 x 2.4 cm Overall Parenchyma: homogenous Left Lobe: 5.0 x 2.1 x 1.7 cm Overall Parenchyma: homogeneous Isthmus Thickness: 0.4 cm NODULES RIGHT: # of nodules measured on right: 0 LEFT: # of nodules measured on left: 1 1. 1.2 X 0.8 x 0.9 cm, lower , mixed cystic and solid, hypoechoic nodule, which is wider than tall, with smooth margins, without echogenic foci. TR3. Prior size: no prior ISTHMUS: # of nodules measured in the isthmus: 0 Bilateral neck scanned, no evidence of lymphadenopathy. IMPRESSION: Left thyroid lobe 1.2 cm TR 3 nodule. 2017 ACR TI-RADS LEVEL: TR-RADS 3 - Mildly Suspicious: Follow if > 1.5 cm, FNA if > 2.5 cm *Highest TI-RADS level nodule reported
== END | disposition home or self-care (01) ==
LOC: RADUSWWP 14:41
PROVIDERS: ATTEND Family Medicine
DX: E04.1 Nontoxic single thyroid nodule (principal); R13.10 Dysphagia, unspecified
CPT/HCPCS: 76536

== ENCOUNTER → 2023-06-11 | Outpatient (CLI) | payer BC ==
--- NOTE | 2023-06-11 11:51 | P.PN ---
Subjective Progress Note Date: 06/11/23 Principal diagnosis: left breast IDC, DCIS left breast DCIS/microinvasive ductal carcinoma Principal diagnosis: microinvasive left breast cancer 08-19-22 Nipple discharge Nichelle is a 62 year old white female seen in consultation for Dr. Duffy regarding left nipple discharge. She had a bilateral mammogram on 01-29-22 which was BIRAD 1. She noted the discharge the end of April. She has had itching of her nipples for many years. The discharge looked like old blood. Her cytology was done on 06-10-22 and was hypocellular and nondiagnostic. It has improved recently. She is not complaining of any lumps, masses, or nodules of concern. She has not had any surgery on her breast. She does not complain of any recent trauma or infection of the breast. She underwent duct exploration of the left duct on 08-19-22. This showed ER+KS+Her2-G1-2 invasive ductal cancer, 2.3 CM DCI with microinvasion. tumor board: 09-02-22 consensus left mastectomy and SNB the patient notified and she wishes a bilateral mastectomy note medical oncology 09-03-22 Dr. Sada Zuluaga reviewed patient underwent a bilateral mastectomy on 10-21-22. right breast: benign breast tissue left breast: microinvasion with DCIS, 1 node (+) isolated tumor cells Note Dr. Zuluaga 05-25-23; reviewed: patient on Tamoxifen started tolerating this without difficulty genetic testing (-) She did not have any radiation therapy The patient is doing well without complaint at this time. Caffeine: 2 cups/day nicotine: none chocolate: occasional BCP: none Family History: mother: leukemia paternal grandmother: breast cancer maternal aunt: lung cancer Hormonal History: menarche: 11 G0 menopause: 43 Surgical History: two knee repla ements lap-band placed and removed tonsil cervical disc surgery Medical History: Bigeminy following with cardiology Social History: nicotine: none alcohol: occasional 3-4 days/week drugs: none - Constitutional Constitutional: Denies chills, Denies fever - EENT Eyes: denies blurred vision, denies pain Ears: bilateral: tinnitus, deny: decreased hearing Ears, nose, mouth and throat: Denies headache, Denies sore throat - Breasts Breasts: bilateral: as per HPI - Cardiovascular Cardiovascular: Denies chest pain, Denies shortness of breath - Respiratory Respiratory: Denies cough - Gastrointestinal Gastrointestinal: Denies abdominal pain, Denies diarrhea, Denies nausea, Denies vomiting - Genitourinary (Female) Genitourinary: Denies dysuria, Denies hematuria - Menstruation Menstruation: Reports postmenopausal - Musculoskeletal Musculoskeletal: Denies myalgias - Integumentary Integumentary: Denies pruritus, Denies rash - Neurological Neurological: Denies numbness, Denies weakness - Psychiatric Psychiatric: Denies anxiety, Denies depression - Endocrine Endocrine: Denies fatigue, Denies weight change - Hematologic/Lymphatic Comment: none Objective - Constitutional General appearance: Present: cooperative - EENT Eyes: Present: EOMI ENT: Present: hearing grossly normal - Neck Neck: Present: normal ROM - Respiratory Respiratory: bilateral: CTA - Cardiovascular Heart sounds: normal: S1, S2 - Integumentary Integumentary: Present: normal turgor - Musculoskeletal Musculoskeletal: Present: gait normal - Psychiatric Psychiatric: Present: A&O x's 3, appropriate affect, intact judgment & insight - Additional findings Additional findings: Breast Exam: BRA: bilatearl mastectomies inspection: well healed scars bilateral palpation: right breast: well healed scar, no nodules of concern Right axilla: No adenopathy of concern Left breast: Well-healed scar from prior surgery, no nodules of concern Left axilla: No adenopathy of concern Assessment and Plan Assessment: Impression: Bilateral mastectomies on 10-21-2022 for left breast DCIS and microinvasive ductal carcinoma Patient presently on tamoxifen Patient was seen by radiation oncology and is not having any radiation therapy she did have 1 isolated tumor cell in her sentinel lymph node Plan: Continue to follow with medical oncology Continue tamoxifen Follow-up here in 6 months Follow-up sooner any questions or concerns CC: Dr. Hopper
[2023-06-11 12:19] VITALS: BP 147/71; PULSE 83; RESP 17; TEMP 98.3
== END ==
LOC: WWCWWP 10:39
PROVIDERS: ATTEND Surgery
DX: D05.12 Intraductal carcinoma in situ of left breast (principal); Z90.13 Acquired absence of bilateral breasts and nipples; Z80.3 Family history of malignant neoplasm of breast

== ENCOUNTER → 2023-06-11 | Outpatient (CLI) | payer BC ==
--- NOTE | 2023-06-11 12:49 | US ---
EXAMINATION TYPE: US thyroid st tissue head/neck DATE OF EXAM: 06/11/2023 COMPARISON: 11/06/2022 CLINICAL INDICATION: Female, 62 years old with history of E04.1 NONTOXIC SINGLE THYROID NODULE; Patie nt has previous nodule. GLAND SIZE: Right Lobe: 4.4 x 1.6 x 2.2 cm Overall Parenchyma: homogeneous Left Lobe: 5.9 x 1.4 x 2.0 cm Overall Parenchyma: homogeneous Isthmus Thickness: 0.4 cm NODULES RIGHT: # of nodules measured on right: 0 LEFT: # of nodules measured on left: 1 1. 1.3 X 0.7 x 1.0 cm, lower mid, solid or almost completely solid, hypoechoic TR 4 nodule, which i s wider than tall, with smooth margins, without echogenic foci. Prior size: 1.2 x 0.7 x 0.8 cm ISTHMUS: # of nodules measured in the isthmus: 0 Bilateral neck scanned, no evidence of lymphadenopathy. IMPRESSION: Solitary 1.3 x 1.0 cm TR4 nodule in the left lobe is minimally larger compared to 1.2 x 0.8 cm, previ ously. 2017 ACR TI-RADS LEVEL: TR-RADS 4 - Moderately Suspicious: Follow if > 1 cm, FNA if > 1.5 cm *Highest TI-RADS level nodule reported
[2023-06-11 19:05] LABS: T4, Free (Free Thyroxine) 1.33 ng/dL (0.80-1.80)
== END | disposition home or self-care (01) ==
LOC: RADUSWWP 10:41
PROVIDERS: ATTEND Internal Medicine Endocrinology, Diabetes & Metabolism
DX: E04.1 Nontoxic single thyroid nodule (principal)
CPT/HCPCS: 76536; 84439; 84443

== ENCOUNTER → 2023-07-15 | Outpatient (CLI) | payer MEDICARE ==
--- NOTE | 2023-07-16 07:41 | FL ---
EXAMINATION TYPE: FL UGI air DATE OF EXAM: 07/15/2023 COMPARISON: None HISTORY: Nausea TECHNIQUE: A Doubler contrast UGI study is performed. FINDINGS: Esophagus dilates to normal caliber and has a normal contour to the gastroesophageal junction. Gastro esophageal junction opens to normal caliber. Noted during the examination are small tertiary contract ions within the distal third of the esophagus compatible some mild presbyesophagus. In the horizontal drinking position there is incomplete stripping of the esophageal bolus. No hiatal hernia. A small a mount of reflux was noted in the distalmost esophagus during the exam. Fundus body and antrum of the stomach are well visualized. No intraluminal abnormality evident. Bariu m readily passes into the normally positioned duodenal cap and sweep. Duodenal fold pattern is normal . Proximal small bowel loops within the [id number] are unremarkable. Fluoroscopy time 1 minute 18 seconds DAP: 4835.41 Images: 131 IMPRESSION: 1. Mild presbyesophagus. 2. Minimal gastroesophageal reflux. 3. Upper GI otherwise appears unremarkable.
== END | disposition home or self-care (01) ==
LOC: RADUSWWP 08:42
PROVIDERS: ATTEND Family Medicine
DX: K21.9 Gastro-esophageal reflux disease without esophagitis (principal); K22.89 Other specified disease of esophagus; E66.01 Morbid (severe) obesity due to excess calories
CPT/HCPCS: 74246

== ENCOUNTER → 2023-12-31 | Outpatient (CLI) | payer MEDICARE ==
[2023-12-31 13:23] VITALS: BP 136/82; PULSE 74; RESP 17; TEMP 98.3
--- NOTE | 2023-12-31 13:58 | P.PN ---
Subjective Progress Note Date: 12/31/23 Principal diagnosis: left breast IDC, DCIS 08-19-22 12-31-23 Principal diagnosis: left breast IDC, DCIS left breast DCIS/microinvasive ductal carcinoma Principal diagnosis: microinvasive left breast cancer 08-19-22 Nipple discharge Nichelle is a 62 year old white female seen in consultation for Dr. Duffy regarding left nipple discharge. She had a bilateral mammogram on 01-29-22 which was BIRAD 1. She noted the discharge the end of April,. She had had itching of her nipples for many years. The discharge looked like old blood. Her cytology was done on 06-10-22 and was hypocellular and nondiagnostic. It has improved recently. She is not complaining of any lumps, masses, or nodules of concern. She has not had any surgery on her breast. She does not complain of any recent trauma or infection of the breast. She underwent duct exploration of the left duct on 08-19-22. This showed ER+AR+Her2-G1-2 invasive ductal cancer, 2.3 CM DCI with microinvasion. tumor board: 09-02-22 consensus left mastectomy and SNB the patient notified and she wishes a bilateral mastectomy note medical oncology 09-03-22 Dr. Sada Zuluaga reviewed patient underwent a bilateral mastectomy on 10-21-22. right breast: benign breast tissue left breast: microinvasion with DCIS, 1 node (+) isolated tumor cells Note Dr. Zuluaga 09-03-23; reviewed: patient on Tamoxifen tolerating this without difficulty genetic testing (-) She did not have any radiation therapy The patient is doing well without complaint at this time. Since her last visit the patient has started a weight loss program with Tirzepatide, she has been on this September 10, 2023 (labs reviewed from this) She has had a 30 pound weight loss With the weight loss she she has not noted redundant axillary tissue more prominent Caffeine: 2 cups/day nicotine: none chocolate: occasional BCP: none Family History: mother: leukemia paternal grandmother: breast cancer maternal aunt: lung cancer Hormonal History: menarche: 11 G0 menopause: 43 Surgical History: two knee repla ements lap-band placed and removed tonsil cervical disc surgery Medical History: Bigeminy following with cardiology Social History: nicotine: none alcohol: occasional 3-4 days/week drugs: none - Constitutional Constitutional: Denies chills, Denies fever - EENT Eyes: denies blurred vision, denies pain Ears: bilateral: tinnitus, deny: decreased hearing Ears, nose, mouth and throat: Denies headache, Denies sore throat - Breasts Breasts: bilateral: as per HPI - Cardiovascular Cardiovascular: Denies chest pain, Denies shortness of breath - Respiratory Respiratory: Denies cough - Gastrointestinal Gastrointestinal: Denies abdominal pain, Denies diarrhea, Denies nausea, Denies vomiting - Genitourinary (Female) Genitourinary: Denies dysuria, Denies hematuria - Menstruation Menstruation: Reports postmenopausal - Musculoskeletal Musculoskeletal: Denies myalgias - Integumentary Integumentary: Denies pruritus, Denies rash - Neurological Neurological: Denies numbness, Denies weakness - Psychiatric Psychiatric: Denies anxiety, Denies depression - Endocrine Endocrine: Denies fatigue, Denies weight change - Hematologic/Lymphatic Comment: none - Constitutional General appearance: Present: cooperative - EENT Eyes: Present: EOMI ENT: Present: hearing grossly normal - Neck Neck: Present: normal ROM Objective - Vital Signs Vital signs: Vital Signs Temp 98.3 F 12/31/23 13:22 Pulse 74 12/31/23 13:22 Resp 17 12/31/23 13:22 BP 136/82 12/31/23 13:22 Pulse Ox 97 12/31/23 13:22 FiO2 Intake & Output 12/30/23 12/31/23 12/31/23 18:59 06:59 18:59 Weight 102.965 kg - Constitutional General appearance: Present: cooperative - EENT Eyes: Present: EOMI ENT: Present: hearing grossly normal - Neck Neck: Present: normal ROM - Respiratory Respiratory: bilateral: CTA - Cardiovascular Rhythm: regular Heart sounds: normal: S1, S2 - Integumentary Integumentary: Present: normal turgor - Musculoskeletal Musculoskeletal: Present: gait normal - Psychiatric Psychiatric: Present: A&O x's 3, appropriate affect, intact judgment & insight - Additional findings Additional findings: Breast Exam: BRA: bilateral mastectomies, prominent redundant axillary tissue bilateral with weight loss inspection: well healed scars bilateral palpation: right breast: well healed scar, no nodules of concern Right axilla: No adenopathy of concern Left breast: Well-healed scar from prior surgery, no nodules of concern Left axilla: No adenopathy of concern Redundant axillary tissue related to weight loss Assessment and Plan Assessment: Impression: Bilateral mastectomies on 10-21-2022 for left breast DCIS and microinvasive ductal carcinoma Patient presently on tamoxifen Patient was seen by radiation oncology and is not having any radiation therapy she did have 1 isolated tumor cell in her sentinel lymph node Plan: Continue to follow with medical oncology Continue tamoxifen Continue to follow until patient reached she is desired weight and at that time would consider resection of redundant axillary tissue bilaterally Follow-up in 6 months Follow-up sooner any questions or concerns Follow-up with Dr. Aguirre regarding well woman evaluation and the fact that she is on tamoxifen and does have a uterus and ovaries CC: Dr. Hopper
== END ==
LOC: WWCWWP 12:56
PROVIDERS: ATTEND Surgery
DX: C50.912 Malignant neoplasm of unspecified site of left female breast (principal); N64.52 Nipple discharge; Z80.3 Family history of malignant neoplasm of breast; Z90.13 Acquired absence of bilateral breasts and nipples; Z17.0 Estrogen receptor positive status [ER+]

== ENCOUNTER → 2024-03-01 | Outpatient (CLI) | payer MEDICARE ==
[2024-03-01 14:41] VITALS: BP 124/76; PULSE 73; RESP 16; TEMP 98.5
--- NOTE | 2024-03-01 15:57 | P.HPOB ---
History of Present Illness H&P Date: 03/01/24 Chief Complaint: Patient is here for her routine gynecologic exam. This is a 63-year-old G0 with an LMP of 2003. The patient is here to establish with this office. It has been about 3 years since her last pelvic exam. She has been experiencing some pelvic pain just to the right of the midline for about 1 month. She describes it as a sharp ache. It is not very severe. At its worst it is rated at a 3 out of 10 and currently is 1 out of 10. She is otherwise without complaints and denies any postmenopausal bleeding. Review of Systems The patient has lost 46 pounds pounds over the last couple of years. She has been trying to lose weight and has been taking Mounjaro to help with weight loss.. She denies respiratory, cardiac, or G.I. problems. Past Medical History Past Medical History: Cancer, GERD/Reflux, Hyperlipidemia, Hypertension Additional Past Medical History / Comment(s): Hx left breast cancer(microinvasive ductal carcinoma)2022, per pt hx svt and pvc from holter monitor,and afib epsisode 08/2022. Dry eyes. 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 History of Any Multi-Drug Resistant Organisms: None Reported Past Surgical History: Breast Surgery, Joint Replacement, Orthopedic Surgery, Tonsillectomy Additional Past Surgical History / Comment(s): bilateral knee partial knee replacement. lap band placed and removed. discectomy. bilateral mastectomy 2022, breast bx. laser surgery to rt eye. Colonoscopy 2020(next after 10yr). EGD 2023. Past Anesthesia/Blood Transfusion Reactions: No Reported Reaction Additional Past Anesthesia/Blood Transfusion Reaction / Comment(s): states some difficulty waking up with breast bx surgery Past Psychological History: No Psychological Hx Reported Smoking Status: Never smoker Past Alcohol Use History: Occasional (About 6 drinks per week.) Additional Past Alcohol Use History / Comment(s): 4-10 drinks per week Past Drug Use History: None Reported Additional History: She has been to a female partner since 2014. She is a retired manager of school. - Past Family History Mother Family Medical History: Cancer Additional Family Medical History / Comment(s): leukemia. . Brother(s) Family Medical History: Coronary Artery Disease (CAD) Additional Family Medical History / Comment(s): . Her niece had ovarian cancer. Sister(s) Family Medical History: AFIB, Coronary Artery Disease (CAD) Father Family Medical History: COPD Additional Family Medical History / Comment(s): . Medications and Allergies Home Medications Medication Instructions Recorded Confirmed Type Acetaminophen Tab [Tylenol] 500 mg PO DAILY PRN 07/11/22 03/01/24 History Esomeprazole Magnesium [NexIUM 20 mg PO DAILY 07/11/22 03/01/24 History 24Hr] Cholecalciferol [Vitamin D3 (25 50 mcg PO DAILY 08/13/22 03/01/24 History Mcg = 1000 Iu)] Rosuvastatin Calcium 5 mg PO DAILY 08/13/22 03/01/24 History Flecainide [Tambocor] 50 mg PO BID 10/10/22 03/01/24 History Propylene Glycol/Peg 400/Pf 2 drops BOTH EYES BID 10/21/22 03/01/24 History [Systane 0.3-0.4% Ophth Dropperette] Losartan Potassium 50 mg PO HS 06/11/23 03/01/24 History Docusate [Colace] 100 mg PO DAILY PRN 08/20/23 03/01/24 History Naproxen Sodium [Aleve] 220 mg PO HS PRN 08/20/23 03/01/24 History Tamoxifen Citrate [Nolvadex] 20 mg PO DAILY 08/20/23 03/01/24 History Tirzepatide [Mounjaro] 35 units INJ WEEKLY 03/01/24 03/01/24 History Allergies Allergy/AdvReac Type Severity Reaction Status Date / Time No Known Allergies Allergy Verified 03/01/24 14:37 Exam Vital Signs Temp Pulse Resp BP Pulse Ox 03/01/24 14:38 98.5 F 73 16 124/76 96 Intake and Output 03/01/24 03/01/24 03/01/24 06:59 14:59 22:59 Other: Weight 101.151 kg Height 5 feet 5 inches, weight 223 pounds, BMI 37.1. This is a well-developed well-nourished white female who is alert and oriented times 3 in no acute distress. HEENT: Within normal limits. NECK: Supple without mass or thyromegaly. CHEST AND LUNGS: Clear to auscultation. HEART: Regular rate and rhythm. BREASTS: Consistent with bilateral mastectomies without implants or reconstruct ion. AXILLARY EXAM: Negative for adenopathy. BACK: Negative for CVA tenderness. ABDOMEN: Soft, nontender, without palpable masses. PELVIC EXAM: Normal external genitalia with mild atrophy. Cervix and vagina appear normal with mild atrophy. There is no unusual discharge. There is no evidence of prolapse. The uterus is midposition with a posterior cervix, nongravid size and nontender. There are no palpable adnexal masses or tenderness. RECTAL EXAM: Rectovaginal exam is negative for mass or tenderness and is negative for occult blood. EXTREMITIES: Nontender. IMPRESSION: 1. 63-year-old menopausal female with a 1 month history of right achy pelvic pain without any significant physical findings on exam today. 2. History of left breast microinvasive ductal carcinoma status post bilateral mastectomies and is on tamoxifen. No evidence of recurrence on exam today. PLAN: 1. Pap smear cotest was performed. Without her records from past Pap smears, we will continue cervical screening beyond age 65. She states she does not have history of cervical neoplasia. If this Pap smear cotest is negative, we will repeat the Pap smear cotest in approximately 4 to 5 years and if that is also ne gative, we will plan on discontinuing Pap smears at that time. 2. Self breast awareness was discussed with the patient. We have also discussed symptoms associated with inflammatory breast cancer. 3. Mammograms have been discontinued because of the bilateral mastectomies. 4. Osteoporosis prevention was discussed. I have stressed the importance of adequate calcium, vitamin D and regular exercise. Recommended amounts of calcium and vitamin D were also discussed. She did have a bone density test more than 5 years ago. We will plan on repeating the bone density test. The order slip was given to the patient for this. 5. Because of the 1 month history of achy pelvic pain, I have recommended a pelvic ultrasound. The order slip was given to the patient for this. 6. She was advised to return in one year for her annual well woman exam and as needed.
== END ==
LOC: WWCWWP 14:08
PROVIDERS: ATTEND Obstetrics & Gynecology
DX: Z01.419 Encounter for gynecological examination (general) (routine) without abnormal findings (principal); Z85.3 Personal history of malignant neoplasm of breast; Z90.13 Acquired absence of bilateral breasts and nipples

== ENCOUNTER → 2024-07-13 | Outpatient (CLI) | payer MEDICARE ==
--- NOTE | 2024-07-13 14:39 | US ---
EXAMINATION TYPE: US pelvis complete transvag DATE OF EXAM: 07/13/2024 COMPARISON: NONE CLINICAL INDICATION: Female, 64 years old with history of R10.2 PELVIC AND PERINEAL PAIN, ASYMPTOMAT IC Z78.0; pt states this probably doesn't need to be done now but still wants it checked to be saf e, pt thinks she pulled a muscle near her hip/upper thigh & was experiencing severe pain, TECHNIQUE: Transvaginal (TV) and Transabdominal (TA) . Transabdominal grayscale sonographic images of the pelvis were acquired. Transvaginal sonographic im ages were medically necessary to better assess the anatomy. FINDINGS: EXAM MEASUREMENTS: Uterus: 9.8x3.9x5.2 cm Endometrial Stripe: 1.5 cm Right Ovary: 1.3x1.1x1.4 cm Left Ovary: 1.2x1.1x1.9 cm Senior Bi Developer notes: limited exam due to overlying bowel & pt body habitus 1. Uterus: Anteverted and otherwise wnl 2. Endometrium: Complex and heterogeneous in appearance with small cystic change. 3. Right Ovary: wnl 4. Left Ovary: wnl 5. Bilateral Adnexa: wnl 6. Posterior cul-de-sac: wnl IMPRESSION: 1. Heterogeneous endometrial stripe thickening to the upper limits of normal at 1.5 cm. Likely due to impending menstruation. Consider follow-up in 6-8 weeks to ensure normal appearance. 2. No evident adnexal abnormality or pelvic free fluid. [facility], , 07/13/2024 2:37 PM
--- NOTE | 2024-07-13 14:48 | BD ---
EXAMINATION TYPE: Axial Bone Density DATE OF EXAM: 07/13/2024 CLINICAL HISTORY: 64 years old Female. ICD-10 CODE: R10.2 PELVIC AND PERINEAL PAIN, ASYMPTOMATI Z78 .0 , Additional History: Height: 5 ft 3 in Weight: 204no FRAX RISK QUESTIONS: Alcohol (3 or more units per day): no Family History (Parent hip fracture): no Glucocorticoids (More than 3mos): no (Ex: prednisone, prednisolone, methylprednisolone, dexamethasone, and hydrocortisone). History of Fracture in Adulthood: yes Secondary Osteoporosis: 1. Type 1 Diabetes: no 2. Hyperthyroidism: no 3. Menopause before 45: yes 4. Malnutrition: no 5. Chronic liver disease: no Rheumatoid Arthritis: no Current Tobacco Use: no RISK FACTORS HISTORY OF: Surgery to Spine/Hip(right/left)/Wrist (right/left): cerv spine When: 1994 MEDICATIONS: Thyroid Medications: none Osteoporosis Medications: none EXAM MEASUREMENTS: Bone mineral densitometry was performed using the [employer] System. Bone mineral density as measured about the Lumbar spine is: ----- L1-L4(G/cm2): 1.556 T Score Values are as follows: ----- L1: 2.7 ----- L2: 3.9 ----- L3: 3.8 ----- L4: 2.1 ----- L1-L4: 3.1 Z Score Values are as follows: ----- L1: 3.4 ----- L2: 4.6 ----- L3: 4.5 ----- L4: 2.8 ----- L1-L4: 3.8 baseline Bone mineral density about the R hip (g/cm2): 1.021 Bone mineral density about the L hip (g/cm2): 0.950 T Score values are as follows: -----R Neck: -0.1 -----L Neck: -0.6 -----R Total: 0.3 -----L Total: 0.2 Z Score values are as follows: -----R Neck: 0.8 -----L Neck: 0.3 -----R Total: 0.9 -----L Total: 0.8 baseline FRAX%s: The graph provided illustrates a 11.6 % chance for a major osteoporotic fx and a 0.6 % chance for the hips probability for fx in 10 years time. IMPRESSION: Normal (Values between +1 and -1 indicate normal bone mass). Consider repeating this study in 5 year s or sooner if there is some new clinical indication. NOTE: T-SCORE=SD OF THE YOUNG ADULT MEAN. [facility], , 07/13/2024 2:45 PM
== END | disposition home or self-care (01) ==
LOC: RADUSWWP 13:11
PROVIDERS: ATTEND Obstetrics & Gynecology
DX: M85.851 Other specified disorders of bone density and structure, right thigh (principal); R10.2 Pelvic and perineal pain; Z78.0 Asymptomatic menopausal state
CPT/HCPCS: 76830; 76856; 77080